=== PATIENT | female | born 1950 ===

== ENCOUNTER 2017-07-02 19:45 | Emergency (ER) | payer MEDICAID, OTHER ==
[2017-07-02 19:46] VITALS: BMI 29.7
[2017-07-02] MEDS ORDERED: Sodium Chloride 0.9% 500 ML IV ONE (20:13)
--- NOTE | 2017-07-02 20:13 | C.PDOC ---
History Of Present Illness 66 year old female who presents to the ER with a complaint of a waxing and waning headache since last month. Patient has a Hx of diabetes and reports her blood sugar is well controlled; denies dysuria or urinary frequency. Time Seen by Provider: 07/02/17 20:07 Chief Complaint (Nursing): Headache History Per: Patient History/Exam Limitations: no limitations Onset/Duration Of Symptoms: Days, Waxing/Waning Current Symptoms Are (Timing): Still Present Preceeding Symptoms: None Associated Symptoms: denies: Blurred Vision, Nausea, Vomiting Recent travel outside of the [place]: No Past Medical History Reviewed: Historical Data, Nursing Documentation, Vital Signs Vital Signs: Last Vital Signs Temp 97.6 F 07/02/17 23:03 Pulse 50 L 07/02/17 23:03 Resp 18 07/02/17 23:03 BP 134/47 L 07/02/17 23:03 Pulse Ox 100 07/02/17 23:03 - Medical History PMH: Diabetes, HTN, Hypercholesterolemia, Peripheral Edema Surgical History: No Surg Hx Family History: States: Unknown Family Hx - Social History Hx Tobacco Use: No Hx Alcohol Use: No Hx Substance Use: No - Immunization History Hx Tetanus Toxoid Vaccination: No Hx Influenza Vaccination: Yes Hx Pneumococcal Vaccination: No Review Of Systems Constitutional: Negative for: Fever, Chills Gastrointestinal: Negative for: Nausea, Vomiting Genitourinary: Negative for: Dysuria, Frequency Neurological: Positive for: Headache. Negative for: Dizziness Physical Exam - Physical Exam Appears: Non-toxic, No Acute Distress Skin: Normal Color, Warm, Dry Head: Atraumatic, Normacephalic Oral Mucosa: Moist Chest: Symmetrical, No Tenderness Cardiovascular: Rhythm Regular, No Murmur Respiratory: Normal Breath Sounds, No Rales, No Rhonchi, No Wheezing Gastrointestinal/Abdominal: Soft, No Tenderness Neurological/Psych: Oriented x3, Normal Speech, Normal Cognition ED Course And Treatment - Laboratory Results Result Diagrams: 07/02/17 21:24 07/02/17 21:24 O2 Sat by Pulse Oximetry: 99 (Room air) Pulse Ox Interpretation: Normal Progress Note: EKG, blood work, urine culture, and abdominal x-ray ordered. Tylenol, insulin, macrobid, and IV fluids administered. Medical Decision Making Medical Decision Making: creat 2.0 from prior 1.0 in 2015, since then PMD has evaluated pt for CRI and outpatient studies including renal ultrasounds Better to have pt follow-up as outpatient w PMD mild UTI, will treat Disposition Doctor Will See Patient In The: Office Counseled Patient/Family Regarding: Studies Performed, Diagnosis - Disposition Referrals: Tarah Galdamez FNP [Advanced Practice Nurse] - Disposition: HOME/ ROUTINE Disposition Time: 22:06 Condition: GOOD Additional Instructions: sigue nai antibioticos (Macrobid 100 mg ) dos veces al yvonne por 5 edwards en total Sigue con Dr. Galdamez considerando mullen jun chronico de los rinones Creatinina 2.0 Prescriptions: Nitrofurantoin Macrocrystals [Macrobid] 1 cap PO BID #9 cap Instructions: Urinary Tract Infection in Women (ED), Diabetic Kidney Disease ( ED) Forms: [employer] (Arabic) Print Language: ESTONIAN - Clinical Impression Clinical Impression: UTI (urinary tract infection), Chronic renal insufficiency - Scribe Statement The provider has reviewed the documentation as recorded by the Scribe Greg Mary All medical record entries made by the Scribe were at my direction and personally dictated by me. I have reviewed the chart and agree that the record accurately reflects my personal performance of the history, physical exam, medical decision making, and the department course for this patient. I have also personally directed, reviewed, and agree with the discharge instructions and disposition.
[2017-07-02] MEDS ORDERED: (Novolin R) Insulin Human Regular 100 units/ml vial IV STA (20:14)
[2017-07-02] MEDS ORDERED: (Novolin R) Insulin Human Regular 100 units/ml vial ONE (20:35)
[2017-07-02 20:48] LABS: SQUAMOUS EPITHIAL 2 /hpf (0-5); URINE BACTERIA FEW (<OCC); URINE BILIRUBIN NEGATIVE (NEGATIVE); URINE BLOOD NEGATIVE (NEGATIVE); URINE CLARITY Hazy (Clear); URINE COLOR Yellow (YELLOW); URINE GLUCOSE (UA) NORMAL (Normal); URINE LEUKOCYTE ESTERASE 3+ Leu/uL (Negative); URINE NITRATE NEGATIVE (NEGATIVE); URINE PROTEIN NEGATIVE (NEGATIVE); URINE UROBILINOGEN NORMAL mg/dL (0.2-1.0)
[2017-07-02 21:31] LABS: BASO # 0.1 K/uL (0.0-0.2); BASO % 0.9 % (0.0-2.0); EOS # 0.1 K/uL (0.0-0.7); EOS % 0.9 % (0.0-4.0); HEMOGLOBIN 12.9 g/dL (11.0-16.0); LYMPH # 3.1 K/uL (1.0-4.3); LYMPH % 39.7 % (20.0-40.0); MEAN CELL VOLUME 81.2 fL (81.0-99.0); MEAN CORPUSCULAR HEMOGLOBIN 26.9 pg (27.0-31.0); MEAN CORPUSCULAR HGB CONC 33.2 g/dL (33.0-37.0); MEAN PLATELET VOLUME 10.1 fL (7.2-11.7); MONO # 0.9 K/uL (0.0-0.8); MONO % 11.7 % (0.0-10.0); NEUT # 3.6 K/uL (1.8-7.0); NEUT % 46.8 % (50.0-75.0); RBC 4.78 Mil/uL (3.80-5.20); RED CELL DISTRIBUTION WIDTH 16.2 % (11.5-14.5); WHITE BLOOD COUNT 7.7 K/uL (4.8-10.8)
[2017-07-02 21:38] LABS: ALBUMIN 3.7 g/dL (3.5-5.0)
[2017-07-02 21:41] LABS: ALB/GLOB RATIO 1.1 (1.0-2.1); ALT/SGPT 28 U/L (9-52); AST/SGOT 25 U/L (14-36); BLOOD UREA NITROGEN 58 mg/dL (7-17); GFR AFRICAN-AMERICAN 30; GFR NON-AFRICAN AMERICAN 25
[2017-07-02 21:42] LABS: CALCIUM 8.4 mg/dl (8.6-10.4)
[2017-07-02 21:50] LABS: B-TYPE NATRIURETIC PEPTIDE 39.5 pg/mL (0-900)
[2017-07-02 23:04] VITALS: BP 134/47; PULSE 50; RESP 18; TEMP 97.6
[2017-07-03 00:57] VITALS: O2SAT 99
--- NOTE | 2017-07-03 07:46 | RAD ---
PROCEDURE: CHEST RADIOGRAPH, 1 VIEW HISTORY: Shortness of breath COMPARISON: 06/04/2015 FINDINGS: LUNGS: Mild venous congestion. PLEURA: No pneumothorax or pleural fluid seen. CARDIOVASCULAR: Normal. OSSEOUS STRUCTURES: No significant abnormalities. VISUALIZED UPPER ABDOMEN: Normal. OTHER FINDINGS: None. IMPRESSION: Mild venous congestion.
--- NOTE | 2017-07-03 10:28 | RAD ---
Abdomen three views History: Constipation. Comparison: None available. Findings: Moderate to severe fecal retention in the colon. Relative paucity of small bowel gas. Degenerative changes in the spine and hips. Diffuse increased interstitial lung markings at both lung bases with some mild nodularity at the right costophrenic angle. Impression: Moderate to severe fecal retention in the colon.
--- NOTE | 2017-07-05 13:09 | CARD ---
APPROVED REPORT EKG Measurement Heart [id number] <Conclusion> Sinus bradycardia Otherwise normal ECG
== END 2017-07-02 23:00 | disposition home or self-care (01) ==
LOC: C.ER 19:45
DX: N39.0 Urinary tract infection, site not specified (principal); N18.9 Chronic kidney disease, unspecified; E11.9 Type 2 diabetes mellitus without complications
CPT/HCPCS: 71010; 74020; 80053; 81001; 82948; 83880; 84484; 85025; 87086; 87181; 93005; 96360; 99284; J7040

== ENCOUNTER 2017-07-31 16:45 | Observation (INO) | payer MEDICAID ==
[2017-07-31 16:46] VITALS: BMI 29.7
[2017-07-31] MEDS ORDERED: Sodium Chloride 0.9% 1,000 ML ONE ×2 (17:02→18:29)
[2017-07-31] MEDS ORDERED: Sodium Chloride 0.9% 1,000 ML IV ONE ×2 (17:10→18:16)
--- NOTE | 2017-07-31 17:26 | C.PDOC ---
History Of Present Illness 66 year old female who presents to the ER with a complaint of dizziness, weakness, headache and PO intake for the past 3 days. Patient reports he has had poor bowel movements over the last week as well. Patient notes having good diabetes control at home; denies fever or chills. Time Seen by Provider: 07/31/17 17:00 Chief Complaint (Nursing): Dizziness/Lightheaded History Per: Patient History/Exam Limitations: no limitations Onset/Duration Of Symptoms: Days Current Symptoms Are (Timing): Still Present Activity At Onset Of Symptoms: Other (Not known) Seizure Or Post-ictal Symptoms: None Possible Causative Factor(s): Decreased PO Intake Fall Associated With With Symptoms: No Recent travel outside of the [place]: No - Symptoms Of CVA Associated Symptoms: denies: Impaired Speech, Seizure Activity, New Vision Deficit(Left), New Vision Deficit(Right), Decreased Ability To Walk, New Confusion Recent Head Trauma: No Past Medical History Reviewed: Historical Data, Nursing Documentation, Vital Signs Vital Signs: Last Vital Signs Temp 97.5 F L 07/31/17 16:49 Pulse 59 L 07/31/17 18:25 Resp 18 07/31/17 18:25 BP 131/49 L 07/31/17 18:25 Pulse Ox 100 07/31/17 18:25 - Medical History PMH: Diabetes, HTN, Hypercholesterolemia, Peripheral Edema Surgical History: No Surg Hx Family History: States: Unknown Family Hx - Social History Hx Tobacco Use: No Hx Alcohol Use: No Hx Substance Use: No - Immunization History Hx Tetanus Toxoid Vaccination: No Hx Influenza Vaccination: Yes Hx Pneumococcal Vaccination: No Review Of Systems Constitutional: Positive for: Weakness. Negative for: Fever, Chills Gastrointestinal: Negative for: Nausea, Vomiting Neurological: Positive for: Headache, Dizziness Physical Exam - Physical Exam Appears: Non-toxic, No Acute Distress Skin: Normal Color, Warm, Dry Head: Atraumatic, Normacephalic Eye(s): bilateral: Normal Inspection, EOMI Oral Mucosa: Dry Neck: Normal, Supple Chest: Symmetrical, No Tenderness Cardiovascular: Rhythm Regular, No Murmur Respiratory: Normal Breath Sounds, No Rales, No Rhonchi, No Wheezing Gastrointestinal/Abdominal: Soft, No Tenderness Neurological/Psych: Oriented x3, Normal Speech, Normal Cognition ED Course And Treatment - Laboratory Results Result Diagrams: 07/31/17 17:23 07/31/17 17:23 Lab Interpretation: Abnormal (increased BUn, creat increased from baseline 2.0, trop neg.) ECG: Interpreted By Me, Viewed By Me ECG Rhythm: Sinus Bradycardia Rate From EC O2 Sat by Pulse Oximetry: 100 (room air ) Pulse Ox Interpretation: Normal - Radiology CXR: Interpreted by Me CXR Interpretation: Yes: No Acute Disease Progress Note: EKG, urinalysis, and renal US ordered. Toradol and IV fluids administered. Reevaluation Time: 18:20 Reassessment Condition: Improved - Physician Consult Information Outcome Of Conversation: 1814: d/w Dr. Espinoza- Medicine Intermission Coordinator, ok to Obs Medical Decision Making Medical Decision Making: dehydration and acute renal insufficiency due to poor PO intake x 3 days. normal glu Disposition Doctor Will See Patient In The: Hospital Counseled Patient/Family Regarding: Studies Performed, Diagnosis - Disposition Disposition: HOSPITALIZED Disposition Time: 18:21 Condition: GOOD - Clinical Impression Clinical Impression: Dehydration, Acute renal insufficiency - Scribe Statement The provider has reviewed the documentation as recorded by the Scribnayely Mary All medical record entries made by the Scribe were at my direction and personally dictated by me. I have reviewed the chart and agree that the record accurately reflects my personal performance of the history, physical exam, medical decision making, and the department course for this patient. I have also personally directed, reviewed, and agree with the discharge instructions and disposition.
--- NOTE | 2017-07-31 17:27 | RAD ---
PROCEDURE: CHEST RADIOGRAPH, 1 VIEW HISTORY: SOB COMPARISON: Portable chest 07/02/2017 FINDINGS: LUNGS: Clear. PLEURA: No pneumothorax or pleural fluid seen. CARDIOVASCULAR: Borderline cardiomegaly. No pulmonary vascular derangement appreciable. OSSEOUS STRUCTURES: No significant abnormalities. VISUALIZED UPPER ABDOMEN: Normal. OTHER FINDINGS: None. IMPRESSION: No acute infiltrate or pleural effusion identified in the interval. Borderline cardiomegaly.
[2017-07-31 17:39] LABS: BASO # 0.1 K/uL (0.0-0.2); BASO % 0.8 % (0.0-2.0); EOS # 0.1 K/uL (0.0-0.7); EOS % 0.6 % (0.0-4.0); HEMATOCRIT 39.7 % (34.0-47.0); LYMPH # 2.7 K/uL (1.0-4.3); LYMPH % 28.9 % (20.0-40.0); MEAN CELL VOLUME 80.7 fL (81.0-99.0); MEAN CORPUSCULAR HEMOGLOBIN 27.4 pg (27.0-31.0); MEAN PLATELET VOLUME 10.2 fL (7.2-11.7); MONO # 0.8 K/uL (0.0-0.8); MONO % 8.7 % (0.0-10.0); RED CELL DISTRIBUTION WIDTH 16.5 % (11.5-14.5); WHITE BLOOD COUNT 9.3 K/uL (4.8-10.8)
[2017-07-31 17:55] LABS: ALB/GLOB RATIO 1.1 (1.0-2.1); ALKALINE PHOSPHATASE 104 U/L (38-126); ALT/SGPT 27 U/L (9-52); AST/SGOT 36 U/L (14-36); CALCIUM 9.5 mg/dl (8.6-10.4); CARBON DIOXIDE 33 mmol/L (22-30); CHLORIDE 84 mmol/L (98-107); GFR AFRICAN-AMERICAN 26; GLUCOSE,RANDOM 89 mg/dL (65-105); POTASSIUM 4.5 mmol/L (3.6-5.2); SODIUM 133 mmol/L (132-148); TOTAL PROTEIN 8.1 g/dL (6.3-8.3)
[2017-07-31 18:02] LABS: BLOOD UREA NITROGEN 102 mg/dL (7-17)
--- NOTE | 2017-07-31 18:05 | C.PDOC ---
Time Seen by Provider: 07/31/17 17:00 Chief Complaint (Nursing): Dizziness/Lightheaded Past Medical History Vital Signs: Last Vital Signs Temp 97.5 F L 07/31/17 16:49 Pulse 55 L 07/31/17 16:49 Resp 20 07/31/17 16:49 BP 74/37 L 07/31/17 16:49 Pulse Ox 100 07/31/17 16:49 - Medical History PMH: Diabetes, HTN, Hypercholesterolemia, Peripheral Edema Denies: Chronic Kidney Disease Family History: States: Unknown Family Hx - Social History Hx Tobacco Use: No Hx Alcohol Use: No Hx Substance Use: No - Immunization History Hx Tetanus Toxoid Vaccination: No Hx Influenza Vaccination: Yes Hx Pneumococcal Vaccination: No ED Course And Treatment O2 Sat by Pulse Oximetry: 100 Disposition - Disposition Forms: [employer] (Arabic)
[2017-07-31] MEDS: Sodium Chloride 0.9% 1,000 ML IV SCH (18:29)
[2017-07-31 20:11] VITALS: RESP 20
--- NOTE | 2017-07-31 21:17 | US ---
EXAM: US Retroperitoneal Limited, Renal CLINICAL HISTORY: 66 years old, female; Signs and symptoms; Other: Luke TECHNIQUE: Real-time ultrasound of the retroperitoneum (limited) with image documentation. COMPARISON: No relevant prior studies available. FINDINGS: Right kidney: 8.3 cm in longitudinal dimension. Normal echogenicity. No mass. No calculi. No hydronephrosis. Left kidney: 8.8 cm in longitudinal dimension. Normal echogenicity. No mass. No calculi. No hydronephrosis. Bladder: Unremarkable. Aorta: Unremarkable. No aneurysm. IMPRESSION: 1.No acute findings.
[2017-07-31] MEDS: Insulin Detemir 100 units/ml Vial (Levemir) SC SCH (21:51)
[2017-07-31] MEDS: (Novolin R) Insulin Human Regular 100 units/ml vial SC SCH (21:52)
[2017-08-01] MEDS: Sodium Chloride 0.9% 1,000 ML IV SCH ×3 (05:07→18:39)
[2017-08-01 07:34] LABS: RBC URINE 2 /hpf (0-3); URINE BACTERIA MANY (<OCC); URINE BILIRUBIN NEGATIVE (NEGATIVE); URINE BLOOD NEGATIVE (NEGATIVE); URINE COLOR Yellow (YELLOW); URINE GLUCOSE (UA) 3+ mg/dL (Normal); URINE KETONE NEGATIVE (NEGATIVE); URINE LEUKOCYTE ESTERASE 3+ Leu/uL (Negative); URINE PROTEIN NEGATIVE (NEGATIVE); URINE UROBILINOGEN NORMAL mg/dL (0.2-1.0); WBC URINE 48 /hpf (0-5)
[2017-08-01 08:21] LABS: BASO # 0.1 K/uL (0.0-0.2); BASO % 0.8 % (0.0-2.0); EOS % 0.6 % (0.0-4.0); HEMATOCRIT 34.4 % (34.0-47.0); LYMPH # 3.5 K/uL (1.0-4.3); LYMPH % 47.1 % (20.0-40.0); MEAN CELL VOLUME 80.7 fL (81.0-99.0); MEAN CORPUSCULAR HEMOGLOBIN 26.7 pg (27.0-31.0); MEAN CORPUSCULAR HGB CONC 33.1 g/dL (33.0-37.0); MEAN PLATELET VOLUME 10.4 fL (7.2-11.7); MONO # 0.5 K/uL (0.0-0.8); MONO % 6.6 % (0.0-10.0); RED CELL DISTRIBUTION WIDTH 16.6 % (11.5-14.5); WHITE BLOOD COUNT 7.3 K/uL (4.8-10.8)
[2017-08-01 08:40] LABS: CALCIUM 8.2 mg/dl (8.6-10.4); POTASSIUM 3.2 mmol/L (3.6-5.2)
[2017-08-01] MEDS: (Novolin R) Insulin Human Regular 100 units/ml vial SC SCH ×4 (08:53→22:35)
[2017-08-01] MEDS ORDERED: Pneumococcal 23-Valent Vaccine IM ONE (10:00)
[2017-08-01] MEDS ORDERED: raNITIdine HCl 150 mg/10 ml Soln Cup PO SCH (10:00)
[2017-08-01] MEDS ORDERED: Potassium Chloride 20 mEq ER Tab PO ONE (12:45)
--- NOTE | 2017-08-01 14:55 | CP.PCM.CON ---
History of Present Illness - History of Present Illness History of Present Illness: Initial Nephrology Consultation: Assessment: critical Acute Kidney Injury (N17.9) likely due to hypovolemia/dehydration, pre-renal, hypotension Likely UTI Hypokalemia, Hyponatremia DM, HTN (I12.9) Plan No acute need for renal replacement therapy at this time. Hypertension control with meds as ordered. Patient not on ACEI/ARB due to YOAV. hold all BP meds continue with IVF as normal saline supplemented KDUR lowered dose of neurontin due to YOAV, can resume home dose once YOAV resolves. Monitor Input/Output, daily weights and renal function with basic metabolic panel antibiotics as ceftriaxone ordered as per d/w primary team. follow urine cx results Dose meds/antibiotics for reduced GFR. Avoid fleets enema/magnesium based laxatives. Avoid nephrotoxins/NSAIDs/ iodinated contrast (unless needed emergently) Glycemic control Further work up/management as per primary team Thanks for allowing me to participate in care of your patient. Will follow patient with you. Please call if any Qs. d/w primary team. d/w daughter bedside Chief Complaint; dizziness Reason for consult: YOAV HPI: Pt is a 66 y/o F with hx of diabetes Mellitus hypertension presented with complaints of feeling dizziness and decreased appetite/oral intake for last 1 week which gradually progressively worsened. she also c/o constipation. has been taking Motrin for headaches Denies chest pain, palpitation, shortness of breath, leg swelling Denies blood or bubbles in urine Denies OTC/herbal meds but has been taking NSAIDs No recent iodinated contrast exposure. had episodes of low BP initially in ER 74 /37. ROS: staff helped in kinyarwanda interpretation Constitutional Symptoms: Denies fever. No chills. No Recent Weight Changes Eyes: denies change in vision, denies watery eyes, denies double vision Ears/Nose/Mouth/Throat: Denies Abnormal Taste. No Bad breath but c/o Bad Taste. Cardiovascular: No chest pain. There is no shortness of breath. No palpitations. Pulmonary: No shortness of breath no cough. Gastrointestinal: denies abdominal pain No nausea. No vomiting. c/o constipation . Denies Bleeding Genitourinary: No Change in force of strain when urinating. No increase in urinary frequency. No pain while urinating. Denies blood in urine. Neurological: c/o headaches. c/o dizziness. Denies loss of balance. Denies weakness, denies tingling/numbness Dermatological: No Rash or Bruising or ulcers. Psychiatric: Denies Anxiety. No depression. Denies hallucinations. Rheumatological: No joint pain. Denies Joint swelling Endocrine: Denies tiredness/Fatigue denies Heat/Cold Intolerance. All other negative Physical Examination: General Appearance: Comfortable, in no acute respiratory distress, co-operative . Vitals reviewed and noted as below Head; Atraumatic, normocephalic ENT: no ulcers no thrush. Tongue is midline. Oropharynx: no rash or ulcers. EYES: Pupils are equal, round and reactive to light accommodation. Eye muscles and extraocular movement intact. Sclera is anicteric. Neck; supple no lymphadenopathy, no thyromegaly or bruit Lungs: Normal respiratory rate/effort. Breath sounds bilateral equal and clear Heart: Normal rate. s1s2 normal. No rub or gallop. Extremities: no edema. No varicose veins Neurological: Patient is alert, awake and oriented to person, place and time. No focal deficit. Strength bilateral appropriate and equal Skin: Warm and dry. Normal turgor. No rash. Palpitation: Normal elasticity for age Abdomen: Abdomen is soft. Bowel sounds +. There is no abdominal tenderness, no guarding/rigidity no organomegaly Psych: normal insight and normal affect/mood MSK: no joint tenderness or swelling. Digits and nails normal, no deformity : kidney or bladder not palpable Labs/imaging/EKG reviewed. Past medical history, past surgical history, family history, social history, allergy reviewed and noted as below Family hx: no hx of CKD. Rest non-contributory Work up:renal sono and CXR unremarkable UA s/o UTI Past Patient History - Past Medical History & Family History Past Medical History?: Yes - Past Social History Smoking Status: Unknown If Ever Smoked - CARDIAC Hx Hypercholesterolemia: Yes Hx Hypertension: Yes Hx Peripheral Edema: Yes - PULMONARY Hx Respiratory Disorders: No - NEUROLOGICAL Hx Neurological Disorder: No - HEENT Hx HEENT Problems: Yes Hx Cataracts: Yes - RENAL Hx Chronic Kidney Disease: No - ENDOCRINE/METABOLIC Hx Endocrine Disorders: Yes Hx Diabetes Mellitus Type 2: Yes - HEMATOLOGICAL/ONCOLOGICAL Hx Blood Disorders: No - INTEGUMENTARY Hx Dermatological Problems: No - MUSCULOSKELETAL/RHEUMATOLOGICAL Hx Falls: No - GASTROINTESTINAL Hx Gastrointestinal Disorders: Yes ("UPSET STOMACH-THATS WHY I AM ON MEDICATION ") - GENITOURINARY/GYNECOLOGICAL Hx Genitourinary Disorders: Yes ("SOME BURNING ON URINATION"-PT.INSTRUCTED TO TELL PCP ON 12/26/15 VISIT.) - PSYCHIATRIC Hx Substance Use: No - SURGICAL HISTORY Hx Surgeries: Yes Hx Cataract Extraction: Yes (Right eye) Hx Hysterectomy: Yes (FIBROID REMOVED-"BELIEVES" UTERUS ALSO REMOVED) Hx Tubal Ligation: Yes - ANESTHESIA Hx Anesthesia: Yes Hx Anesthesia Reactions: No Hx Malignant Hyperthermia: No Meds Allergies/Adverse Reactions: Allergies Allergy/AdvReac Type Severity Reaction Status Date / Time No Known Allergies Allergy Verified 07/31/17 16:52 - Medications Medications: Current Medications Acetaminophen (Tylenol 325mg Tab) 650 mg PO Q6 PRN PRN Reason: Pain, moderate (4-7) Aspirin (Ecotrin) 81 mg PO DAILY [facility] Last Admin: 08/01/17 10:11 Dose: 81 mg Famotidine (Pepcid) 20 mg PO DAILY [facility] Gabapentin (Neurontin) 300 mg PO TID [facility] Last Admin: 08/01/17 14:01 Dose: 300 mg Heparin Sodium (Porcine) (Heparin) 5,000 units SC Q8 [facility] Last Admin: 08/01/17 13:13 Dose: 5,000 units Sodium Chloride (Sodium Chloride 0.9%) 1,000 mls @ 100 mls/hr IV .Q10H [facility] Last Admin: 08/01/17 14:32 Dose: Not Given Ceftriaxone Sodium 1 gm/ (Sodium Chloride) 100 mls @ 100 mls/hr IVPB DAILY [facility] Stop: 08/05/17 10:59 Insulin Detemir (Levemir) 7 unit SC HS [facility] Last Admin: 07/31/17 21:51 Dose: 7 unit Insulin Human Regular (Novolin R) 0 unit SC ACHS MATT PRN Reason: Protocol Last Admin: 08/01/17 13:03 Dose: 3 unit Results - Vital Signs Recent Vital Signs: Last Vital Signs Temp 98.6 F 08/01/17 08:01 Pulse 60 08/01/17 08:01 Resp 20 08/01/17 08:01 BP 102/61 08/01/17 08:01 Pulse Ox 99 08/01/17 08:01 - Labs Result Diagrams: 08/01/17 08:05 08/01/17 08:05 Labs: Laboratory Results - last 24 hr 07/31/17 08/01/17 08/01/17 21:44 07:10 07:17 WBC RBC Hgb Hct MCV MCH MCHC RDW Plt Count MPV Neut % (Auto) Lymph % (Auto) [place] % (Auto) Eos % (Auto) Baso % (Auto) Neut # Lymph # [place] # Eos # Baso # Sodium Potassium Chloride Carbon Dioxide Anion Gap BUN Creatinine Est GFR ( Amer) Est GFR (Non-Af Amer) POC Glucose (mg/dL) 318 H 295 H Random Glucose Calcium Urine Color Yellow Urine Clarity Hazy Urine pH 5.0 Ur Specific [place] 1.009 Urine Protein Negative Urine Glucose (UA) 3+ H Urine Ketones Negative Urine Blood Negative Urine Nitrate Negative Urine Bilirubin Negative Urine Urobilinogen Normal Ur Leukocyte Esterase 3+ H Urine WBC (Auto) 48 H Urine RBC (Auto) 2 Ur Squamous Epith Cells 7 H Urine Bacteria Many H 08/01/17 08/01/17 08/01/17 08:05 08:05 11:22 WBC 7.3 RBC 4.27 Hgb 11.4 D Hct 34.4 MCV 80.7 L MCH 26.7 L MCHC 33.1 RDW 16.6 H Plt Count 159 MPV 10.4 Neut % (Auto) 44.9 L Lymph % (Auto) 47.1 H [place] % (Auto) 6.6 Eos % (Auto) 0.6 Baso % (Auto) 0.8 Neut # 3.3 Lymph # 3.5 [place] # 0.5 Eos # 0.0 Baso # 0.1 Sodium 130 L Potassium 3.2 L Chloride 92 L Carbon Dioxide 26 Anion Gap 15 BUN 83 H Creatinine 1.7 H Est GFR ( Amer) 36 Est GFR (Non-Af Amer) 30 POC Glucose (mg/dL) 265 H Random Glucose 287 H Calcium 8.2 L Urine Color Urine Clarity Urine pH Ur Specific [place] Urine Protein Urine Glucose (UA) Urine Ketones Urine Blood Urine Nitrate Urine Bilirubin Urine Urobilinogen Ur Leukocyte Esterase Urine WBC (Auto) Urine RBC (Auto) Ur Squamous Epith Cells Urine Bacteria
[2017-08-01] MEDS: Insulin Detemir 100 units/ml Vial (Levemir) SC SCH (22:39)
--- NOTE | 2017-08-01 23:49 | CP.PCM.HP ---
Past Patient History - Past Medical History & Family History Past Medical History?: Yes - Past Social History Smoking Status: Unknown If Ever Smoked - CARDIAC Hx Hypercholesterolemia: Yes Hx Hypertension: Yes Hx Peripheral Edema: Yes - PULMONARY Hx Respiratory Disorders: No - NEUROLOGICAL Hx Neurological Disorder: No - HEENT Hx HEENT Problems: Yes Hx Cataracts: Yes - RENAL Hx Chronic Kidney Disease: No - ENDOCRINE/METABOLIC Hx Endocrine Disorders: Yes Hx Diabetes Mellitus Type 2: Yes - HEMATOLOGICAL/ONCOLOGICAL Hx Blood Disorders: No - INTEGUMENTARY Hx Dermatological Problems: No - MUSCULOSKELETAL/RHEUMATOLOGICAL Hx Falls: No - GASTROINTESTINAL Hx Gastrointestinal Disorders: Yes ("UPSET STOMACH-THATS WHY I AM ON MEDICATION ") - GENITOURINARY/GYNECOLOGICAL Hx Genitourinary Disorders: Yes ("SOME BURNING ON URINATION"-PT.INSTRUCTED TO TELL PCP ON 12/26/15 VISIT.) - PSYCHIATRIC Hx Substance Use: No - SURGICAL HISTORY Hx Surgeries: Yes Hx Cataract Extraction: Yes (Right eye) Hx Hysterectomy: Yes (FIBROID REMOVED-"BELIEVES" UTERUS ALSO REMOVED) Hx Tubal Ligation: Yes - ANESTHESIA Hx Anesthesia: Yes Hx Anesthesia Reactions: No Hx Malignant Hyperthermia: No Meds Allergies/Adverse Reactions: Allergies Allergy/AdvReac Type Severity Reaction Status Date / Time No Known Allergies Allergy Verified 07/31/17 16:52 Results - Vital Signs Recent Vital Signs: Last Vital Signs Temp 98.3 F 08/01/17 15:00 Pulse 59 L 08/01/17 15:00 Resp 20 08/01/17 15:00 BP 136/56 L 08/01/17 15:00 Pulse Ox 100 08/01/17 15:00 - Labs Result Diagrams: 08/01/17 08:05 08/01/17 08:05 Labs: Laboratory Results - last 24 hr 08/01/17 08/01/17 08/01/17 07:10 07:17 08:05 WBC 7.3 RBC 4.27 Hgb 11.4 D Hct 34.4 MCV 80.7 L MCH 26.7 L MCHC 33.1 RDW 16.6 H Plt Count 159 MPV 10.4 Neut % (Auto) 44.9 L Lymph % (Auto) 47.1 H [place] % (Auto) 6.6 Eos % (Auto) 0.6 Baso % (Auto) 0.8 Neut # 3.3 Lymph # 3.5 [place] # 0.5 Eos # 0.0 Baso # 0.1 Sodium Potassium Chloride Carbon Dioxide Anion Gap BUN Creatinine Est GFR ( Amer) Est GFR (Non-Af Amer) POC Glucose (mg/dL) 295 H Random Glucose Calcium Urine Color Yellow Urine Clarity Hazy Urine pH 5.0 Ur Specific [place] 1.009 Urine Protein Negative Urine Glucose (UA) 3+ H Urine Ketones Negative Urine Blood Negative Urine Nitrate Negative Urine Bilirubin Negative Urine Urobilinogen Normal Ur Leukocyte Esterase 3+ H Urine WBC (Auto) 48 H Urine RBC (Auto) 2 Ur Squamous Epith Cells 7 H Urine Bacteria Many H 08/01/17 08/01/17 08/01/17 08:05 11:22 16:34 WBC RBC Hgb Hct MCV MCH MCHC RDW Plt Count MPV Neut % (Auto) Lymph % (Auto) [place] % (Auto) Eos % (Auto) Baso % (Auto) Neut # Lymph # [place] # Eos # Baso # Sodium 130 L Potassium 3.2 L Chloride 92 L Carbon Dioxide 26 Anion Gap 15 BUN 83 H Creatinine 1.7 H Est GFR ( Amer) 36 Est GFR (Non-Af Amer) 30 POC Glucose (mg/dL) 265 H 181 H Random Glucose 287 H Calcium 8.2 L Urine Color Urine Clarity Urine pH Ur Specific [place] Urine Protein Urine Glucose (UA) Urine Ketones Urine Blood Urine Nitrate Urine Bilirubin Urine Urobilinogen Ur Leukocyte Esterase Urine WBC (Auto) Urine RBC (Auto) Ur Squamous Epith Cells Urine Bacteria 08/01/17 21:22 WBC RBC Hgb Hct MCV MCH MCHC RDW Plt Count MPV Neut % (Auto) Lymph % (Auto) [place] % (Auto) Eos % (Auto) Baso % (Auto) Neut # Lymph # [place] # Eos # Baso # Sodium Potassium Chloride Carbon Dioxide Anion Gap BUN Creatinine Est GFR ( Amer) Est GFR (Non-Af Amer) POC Glucose (mg/dL) 254 H Random Glucose Calcium Urine Color Urine Clarity Urine pH Ur Specific [place] Urine Protein Urine Glucose (UA) Urine Ketones Urine Blood Urine Nitrate Urine Bilirubin Urine Urobilinogen Ur Leukocyte Esterase Urine WBC (Auto) Urine RBC (Auto) Ur Squamous Epith Cells Urine Bacteria
[2017-08-02] MEDS: Sodium Chloride 0.9% 1,000 ML IV SCH (06:49)
[2017-08-02 07:23] LABS: BASO % 0.4 % (0.0-2.0); EOS # 0.1 K/uL (0.0-0.7); EOS % 0.5 % (0.0-4.0); HEMATOCRIT 36.8 % (34.0-47.0); LYMPH # 2.2 K/uL (1.0-4.3); LYMPH % 21.5 % (20.0-40.0); MEAN CELL VOLUME 81.8 fL (81.0-99.0); MEAN CORPUSCULAR HEMOGLOBIN 26.8 pg (27.0-31.0); MEAN CORPUSCULAR HGB CONC 32.8 g/dL (33.0-37.0); MEAN PLATELET VOLUME 10.6 fL (7.2-11.7); MONO # 0.5 K/uL (0.0-0.8); MONO % 5.2 % (0.0-10.0); NRBC % 0.1 % (0.0-2.0); RED CELL DISTRIBUTION WIDTH 16.7 % (11.5-14.5)
[2017-08-02 07:52] LABS: BLOOD UREA NITROGEN 35 mg/dL (7-17); CALCIUM 9.2 mg/dl (8.6-10.4); CARBON DIOXIDE 26 mmol/L (22-30); CHLORIDE 105 mmol/L (98-107); GFR AFRICAN-AMERICAN > 60; GLUCOSE,RANDOM 226 mg/dL (65-105); PHOSPHOROUS 2.6 mg/dL (2.5-4.5); POTASSIUM 4.3 mmol/L (3.6-5.2); SODIUM 143 mmol/L (132-148)
[2017-08-02 08:34] VITALS: BP 128/61; TEMP 98.3; O2SAT 96
[2017-08-02] MEDS: (Novolin R) Insulin Human Regular 100 units/ml vial SC SCH ×2 (08:44→12:09)
--- NOTE | 2017-08-02 11:03 | HP ---
CHIEF COMPLAINT: Dizziness and weakness x1 day. HISTORY OF PRESENT ILLNESS: This is a 66 years old female who does not have any extensive past medical history and presenting because for the last few days, she has been getting increasingly dizzy, weak, headache, oral intake has been poor, and the patient has been constipated, and according to the patient her sugars have been under control despite diabetes. She had chills, rigors, body aches, tiredness, lightheadedness, dizziness. She denies any history of abdominal pain. She had generalized weakness. She has frequency of urination and nocturia. She denies any history of polyuria, polydipsia, polyphagia. She denies any history of hematuria. There is no history of trauma or fall, loss of consciousness. There is no history of head injury. There is no history of cough, sore throat, running nose. She denies any sneezing, itchy eyes, or itchy nose. She denies any history of diplopia, blurring of vision, loss of vision. The patient denies any headache. The patient denies any history of tingling, numbness, or paresthesias of any part of the body. She denies any history of rectal bleeding. PAST MEDICAL HISTORY: Significant for type 2 diabetes, hypertension, hyperlipidemia, peripheral edema. SOCIAL HISTORY: Nonsmoker, non-EtOH user. CURRENT MEDICATIONS: Aspirin, Zantac, Levemir, Humulin, gabapentin, Norvasc, and Diovan. PHYSICAL EXAMINATION: GENERAL: An elderly female who looks weak, dehydrated. VITAL SIGNS: Blood pressure 105/55, pulse 74, respiratory rate 20, and temperature 97.7. SKIN: Dry, poor turgor. HEENT: Atraumatic and normocephalic. Negative pallor. Negative jaundice. Extraocular movements are intact. NECK: Supple. Flat neck veins. No JVD. CHEST WALL: Bilateral symmetrical expansion. No tenderness. LUNGS: Bilaterally clear. No rales. No rhonchi. CARDIOVASCULAR: S1 and S2 regular. No heaves noted. ABDOMEN: Soft and nontender. Bowel sounds are positive. RECTAL: No masses. PELVIC: Nontender. CENTRAL NERVOUS SYSTEM: Awake, alert and oriented x3. Cranial nerves II through XII are normal. 5/5 x4. Plantars are downgoing. ASSESSMENT: 1. Dehydration, prerenal azotemia. 2. Urinary tract infection, rule out sepsis. 3. Hypertension. 4. Type 2 diabetes. PLAN: Admit. Detailed orders written, seen and examined. All the orders were placed in the computer by myself. Tanner Espinoza MD
--- NOTE | 2017-08-02 12:36 | CP.PCM.PN ---
Subjective - Date & Time of Evaluation Date of Evaluation: 08/02/17 Time of Evaluation: 12:33 - Subjective Subjective: Follow up Nephrology Consultation: Assessment: stable Acute Kidney Injury (N17.9) likely due to hypovolemia/dehydration, pre-renal, hypotension: improved Likely UTI Hypokalemia, Hyponatremia DM, HTN (I12.9) Plan renal function much better and close to normal BP controlled off meds. Patient not on ACEI/ARB now due to YOAV. can gradually resume home BP meds such as norvasc at d/c and ARBs later as outpt encourage oral intake lowered dose of neurontin due to YOAV, can resume home dose once YOAV resolves. Monitor Input/Output, daily weights and renal function with basic metabolic panel antibiotics as ceftriaxone ordered as per d/w primary team. follow urine cx results Dose meds/antibiotics for reduced GFR. Avoid fleets enema/magnesium based laxatives. Avoid nephrotoxins/NSAIDs/ iodinated contrast (unless needed emergently) Glycemic control Further work up/management as per primary team Thanks for allowing me to participate in care of your patient. Will follow patient with you. Please call if any Qs. d/w daughter bedside Chief Complaint; low back pain Reason for consult: YOAV HPI: Pt is a 66 y/o F with hx of diabetes Mellitus hypertension presented with complaints of feeling dizziness and decreased appetite/oral intake for last 1 week which gradually progressively worsened. she also c/o constipation. has been taking Motrin for headaches Denies chest pain, palpitation, shortness of breath, leg swelling Denies blood or bubbles in urine Denies OTC/herbal meds but has been taking NSAIDs No recent iodinated contrast exposure. had episodes of low BP initially in ER 74 /37. ROS: feels better today. had a BM. c/o low back pain. Physical Examination: General Appearance: Comfortable, in no acute respiratory distress, co-operative . Vitals reviewed and noted as below Head; Atraumatic, normocephalic ENT: no ulcers no thrush. Tongue is midline. Oropharynx: no rash or ulcers. EYES: Pupils are equal, round and reactive to light accommodation. Eye muscles and extraocular movement intact. Sclera is anicteric. Neck; supple no lymphadenopathy, no thyromegaly or bruit Lungs: Normal respiratory rate/effort. Breath sounds bilateral equal and clear Heart: Normal rate. s1s2 normal. No rub or gallop. Extremities: no edema. No varicose veins Neurological: Patient is alert, awake and oriented to person, place and time. No focal deficit. Strength bilateral appropriate and equal Skin: Warm and dry. Normal turgor. No rash. Palpitation: Normal elasticity for age Abdomen: Abdomen is soft. Bowel sounds +. There is no abdominal tenderness, no guarding/rigidity no organomegaly Psych: normal insight and normal affect/mood MSK: no CVA tenderness. she has b/l lower back pain no joint swelling. Digits and nails normal, no deformity : kidney or bladder not palpable Labs/imaging/EKG reviewed. Past medical history, past surgical history, family history, social history, allergy reviewed and noted as below Family hx: no hx of CKD. Rest non-contributory Work up:renal sono and CXR unremarkable UA s/o UTI Objective - Vital Signs/Intake and Output Vital Signs (last 24 hours): Temp Pulse Resp BP Pulse Ox 98.3 F 56 L 20 128/61 96 08/02/17 08:32 08/02/17 08:32 08/02/17 08:32 08/02/17 08:32 08/02/17 08:32 Intake and Output: 08/02/17 08/02/17 06:59 18:59 Intake Total 1590 Balance 1590 - Medications Medications: Current Medications Acetaminophen (Tylenol 325mg Tab) 650 mg PO Q6 PRN PRN Reason: Pain, moderate (4-7) Aspirin (Ecotrin) 81 mg PO DAILY [facility] Last Admin: 08/02/17 10:20 Dose: 81 mg Famotidine (Pepcid) 20 mg PO DAILY [facility] Last Admin: 08/02/17 10:22 Dose: 20 mg Gabapentin (Neurontin) 300 mg PO TID [facility] Last Admin: 08/02/17 10:20 Dose: 300 mg Heparin Sodium (Porcine) (Heparin) 5,000 units SC Q8 [facility] Last Admin: 08/02/17 05:40 Dose: 5,000 units Ceftriaxone Sodium 1 gm/ (Sodium Chloride) 100 mls @ 100 mls/hr IVPB DAILY [facility] Stop: 08/05/17 10:59 Last Admin: 08/02/17 10:22 Dose: 100 mls/hr Sodium Chloride (Sodium Chloride 0.9%) 1,000 mls @ 70 mls/hr IV .[id number] [facility] Last Admin: 08/02/17 06:49 Dose: Not Given Insulin Detemir (Levemir) 7 unit SC HS [facility] Last Admin: 08/01/17 22:39 Dose: 7 unit Insulin Human Regular (Novolin R) 0 unit SC ACHS [facility] PRN Reason: Protocol Last Admin: 08/02/17 12:09 Dose: 2 unit - Labs Labs: 08/02/17 07:08 08/02/17 07:08
[2017-08-02 14:32] VITALS: PULSE 60
[2017-08-02 14:46] LABS: URINE BACTERIA RARE (<OCC); URINE BILIRUBIN NEGATIVE (NEGATIVE); URINE BLOOD NEGATIVE (NEGATIVE); URINE COLOR Yellow (YELLOW); URINE GLUCOSE (UA) 3+ mg/dL (Normal); URINE KETONE NEGATIVE (NEGATIVE); URINE LEUKOCYTE ESTERASE NEG Leu/uL (Negative); URINE PROTEIN NEGATIVE (NEGATIVE); URINE UROBILINOGEN NORMAL mg/dL (0.2-1.0); WBC URINE 2 /hpf (0-5)
--- NOTE | 2017-08-18 14:22 | CARD ---
APPROVED REPORT EKG Measurement Heart [id number] MI [id number] <Conclusion> Sinus bradycardia Otherwise normal ECG
== END 2017-08-02 14:00 | disposition home or self-care (01) ==
LOC: C.ER 16:45 → C.9E 18:15 → C.3T 18:51
PROVIDERS: ADMIT Internal Medicine; ATTEND Internal Medicine
DX: E86.0 Dehydration (principal); N28.9 Disorder of kidney and ureter, unspecified
CPT/HCPCS: 36415; 71010; 76770; 80048; 80053; 81001; 82306; 82948; 83735; 83880; 84100; 84484; 85025; 87086; 87181; 96361; 96374; 99285; G0378; J0696; J1644; J1885; J7040

== ENCOUNTER 2019-04-11 09:39 | Outpatient (CLI) | payer MEDICARE, MEDICAID | END 2019-04-11 09:40 | disposition home or self-care (01) | LOC: C.VASC 09:39 | DX: R60.0 Localized edema (principal) ==